=== PATIENT | female | born 1955 | race Caucasian/White ===

== ENCOUNTER 2017-02-22 06:49 | Emergency (ER) | payer BC ==
[~2017-02-22] VITALS: Ht 157.5 cm; Wt 57.6 kg
[~2017-02-22 06:49] MED LIST: HYCO5UDC PO; LORTA5 PO; PRED50 PO; VENTAER INH
[2017-02-22 06:58] VITALS: BP 159/88; PULSE 81; RESP 16; TEMP 97.4; O2SAT 97
[2017-02-22] MEDS ORDERED: SYMB80AE INH (07:11)
[2017-02-22] MEDS ORDERED: LOVA20TA PO (07:11)
--- NOTE | 2017-02-22 07:22 | PD ---
HPI Chief Complaint: Back/ Neck Pain or Injury Time Seen by Provider: 07:07 Travel History International Travel<30 days: No Contact w/Intl Traveler<30days: No Traveled to known affect area: No History of Present Illness HPI 61yo F with PMH of COPD presents to the ED wit c/o left scapula pain since yesterday. States it was not bad yesterday but got worst this morning. Pain is a twisting type of pain, nonradiating, constant and worst with movement or cough. Denies any fever, chest pain, sob, n/v, abdominal pain, focal weakness or numbness. Did not take anything for pain and said she never had similar pain before. PFSH Past Medical History High Cholesterol: Yes COPD: Yes Diminished Hearing: No Immunizations Current: Yes Influenza Vaccination: Yes ?: Not Tubal Ligation: Yes Past Surgical History Tonsillectomy: Yes Other Surgery: Yes (BREAST IMPLANTS, NECK SURGERY) Social History Alcohol Use: No Tobacco Use: No Substance Use: No Allergies-Medications (Allergen,Severity, Reaction): Uncoded Allergies: STEROID (Allergy, Severe, 02/22/17) UNKOWN WHAT KIND Reported Meds & Prescriptions Reported Meds & Active Scripts Active Reported Symbicort Inh (Budesonide/Formoterol Fumarate) 80-4.5 Mcg/Act Aero 1 Puff INH Q12HR Lovastatin 20 Mg Tab 20 Mg PO HS Review of Systems Except as stated in HPI: all other systems reviewed are Neg Physical Exam Narrative GENERAL: 61yo F in mild distress. SKIN: Focused skin assessment warm/dry. HEAD: Atraumatic. Normocephalic. EYES: Pupils equal and round. No scleral icterus. No injection or drainage. ENT: No nasal bleeding or discharge. Mucous membranes pink and moist. NECK: No midline cervical spine ttp. CARDIOVASCULAR: Regular rate and rhythm. No murmur appreciated. RESPIRATORY: No accessory muscle use. Clear to auscultation. Breath sounds equal bilaterally. GASTROINTESTINAL: Abdomen soft, non-tender, nondistended. MUSCULOSKELETAL: +Reproducible pain when medial left scapula is palpated. No lower extremity edema. FROM left shoulder. Sensation intact. Distal pulses intact. NEUROLOGICAL: Awake and alert. No obvious cranial nerve deficits. Motor grossly within normal limits. Normal speech. PSYCHIATRIC: Appropriate mood and affect; insight and judgment normal. Data Data Last Documented VS Vital Signs Date Time Temp Pulse Resp B/P (MAP) Pulse Ox O2 Delivery O2 Flow Rate FiO2 02/22/17 06:58 97.4 81 16 159/88 (111) 97 Orders Orders Chest, Single Ap (02/22/17 ) Electrocardiogram (02/22/17 ) Diazepam (Valium) (02/22/17 07:30) Ibuprofen (Motrin) (02/22/17 07:30) MDM Medical Decision Making Medical Screen Exam Complete: Yes Emergency Medical Condition: Yes Interpretation(s) EKG: NSR 65bpm. Normal axis. No ST segment elevation or depression. Differential Diagnosis Musculoskeletal pain vs. atypical pneumonia vs. atypical ACS Narrative Course 61yo F with left medial scapula paint that is tender to palpation. CXR showed hyperinflated lungs but otherwise clear. Small granulomas in left lung. EKG unremarkable. Pt has no chest pain or sob. Pt given ibuprofen and valium with improvement of pain. Return precautions given. Diagnosis Primary Impression: Musculoskeletal back pain Patient Instructions: General Instructions Departure Forms: Tests/Procedures Additional Instructions: Please follow up with your primary care physician in 2-3 days. Return to the ED if symptoms worsen. Med/Other Pt SpecificInfo: Prescription(s) given Scripts Ibuprofen (Ibuprofen) 600 Mg Tab 600 MG PO Q8HR Y for PAIN, #20 TAB 0 Refills Prov: Sarah Mreaz 02/22/17 Disposition: 01 DISCHARGE HOME Condition: Stable MerazSarah wilson Feb 22, 2017 07:22
[2017-02-22] MEDS ORDERED: DIAZEPAM 5 MG TAB PO ONE (07:30)
[2017-02-22] MEDS ORDERED: IBUPROFEN 600 MG TAB PO ONE (07:30)
--- NOTE | 2017-02-22 07:58 | RADRPT ---
EXAM DATE/TIME: 02/22/2017 07:44 [facility] COMPARISON: CHEST SINGLE AP, January 23, 2015, 23:52. INDICATIONS : Short of breath. Pain under left shoulder for 2 days. MEDICAL HISTORY : None. SURGICAL HISTORY : None. ENCOUNTER: Initial ACUITY: 2 days PAIN SCORE: 5/10 LOCATION: Left chest FINDINGS: Lungs are hyperinflated but otherwise clear. Heart and mediastinal structures are stable. Small granu elham are identified in the left lung. There is no evidence of acute air space disease, suspicious mass or pleural effusion. Osseous structures are intact. CONCLUSION: No acute disease. COPD Elio Lugo MD on February 22, 2017 at 7:56 Board Certified Radiologist. This report was verified electronically.
[2017-02-22] MEDS ORDERED: IBUP-232 PO (08:28)
[2017-02-22 08:40] VITALS: BP 140/80
--- NOTE | 2017-02-22 18:01 | EKG ---
Date Performed: 02/22/2017 Time Performed: 07:30:19 PTAGE: 61 years EKG: Sinus rhythm WITH SINUS ARRHYTHMIA NORMAL ECG Compared to prior tracing no significant change PREVIOUS TRACING : 01/23/2015 23.27.30 DOCTOR: Virginia Fong Interpretating Date/Time 02/22/2017 18:01:08
== END 2017-02-22 08:41 | disposition home or self-care (01) ==
LOC: PHED 06:49
DX: M54.9 Dorsalgia, unspecified (principal); J44.9 Chronic obstructive pulmonary disease, unspecified; E78.00 Pure hypercholesterolemia, unspecified; Z79.899 Other long term (current) drug therapy
CPT/HCPCS: 71010; 93005; 99284